=== PATIENT | female | born 1945 | race Caucasian/White ===

== ENCOUNTER → 2016-03-09 | Day surgery (SDC) | payer MEDICARE, BC ==
[~2016-03-09] MED LIST: ACETAMINOPHEN/HYDROcodone 325 MG/5 MG TAB ONE; BETH25TA2 PO; BUPIVACAINE/EPINEPHRINE 0.5% 50 ML VIAL ONE; BUSP10TA PO; CIPR250T52 PO; CYAN1000P IM; DRON5CAP PO; ERYT200S2 PO; HYDR-3580 PO; IOHEXOL 180 MG/ML 20 ML VIAL (for RAD DIAG) ONE; KETOROLAC TROMETHAMINE 30 MG/ML (IVP) VIAL IV PUSH ONE; LACTATED RINGER'S 1000 ML INJ 1,000 ML ONE; LEVO25TA4 PO; LIDOCAINE 1%/EPINEPHrine 1:100,000 SOLN 20 ML VIAL ONE; LINA290C PO; LORA1TAB12 PO; MAGN1TAB14 PO; MIDAZOLAM HCL 2 MG/2 ML VIAL ONE; MILKPOW; MOBI7.5T PO; MORPHINE SULFATE 4 MG/ML INJ ONE; MULTTAB25 PO; OMEP40CA2 PO; ONDA4TAB7 SL; OXYC-392 PO; PHEN-430 PO; PROPOFOL 200 MG/20 ML AMP IV ONE; SODIUM CHLORIDE 0.9% SOLN 100 ML (PAB) BAG IV ONE; TIZA2CAP3 PO; ZOLE5P IV; ceFAZolin INJ 1,000 MG VIAL ONE
--- NOTE | 2016-03-09 13:50 | TN ---
cc: CJ VALENTINO DATE OF SURGERY: 03/09/2016 PREOPERATIVE DIAGNOSIS Compression fracture L1 acute. POSTOPERATIVE DIAGNOSIS Compression fracture L1 acute. PROCEDURE Kyphoplasty of L1 and placement of bone cement spacer. SURGEON Cj Valentino ANESTHESIA TIVA. BLOOD LOSS Minimal. INDICATION This patient is a 70-year-old female who has had evidence of an x-ray showing acute fractures of L1 with minimal subsidence been followed now for period of 3-4 weeks. Investigative studies shows evidence of continued subsidence of that level. The patient had the pacemaker cannot have a MRI scan. She is felt to have clear evidence of acute compression fracture at that level. Despite conservative care she is painful now presents for surgical treatment. PROCEDURE The patient brought to the operating given limited sedation. She rolled to prone position on a radiolucent table. All pressure points were protected and the back was scrubbed alcohol followed by Hibiclens followed Chloraprep and draped sterilely. Antibiotics were given within 1 hour time window a time-out was done. AP and lateral radiographic images used identifying the L2-L1 level. Local anesthesia was utilized in a single balloon was utilized from left side. Local anesthesia was utilized small incision made an awl placed down to the pedicle and into the tube body at oblique angle. A 20-mm Kyphon balloon was placed centrally and was inflated. On the back table the Methacrylate was mixed. After approximately 11 minutes it was injected. We had no extravasation. The cement was allowed to harden. The tubes removed. Intraoperative x-rays were obtained. The wound was irrigated, anesthetized, closed with 4-0 Vicryl, followed by Dermabond. The patient was awakened taken to the Recovery Room in satisfactory condition. Cj Valentino MD [facility] [place]/ /1:35 PM /1:41 PM
== END | disposition home or self-care (01) ==
LOC: ESDC 10:52
PROVIDERS: ATTEND Orthopaedic Surgery Orthopaedic Surgery of the Spine
DX: S32.010A Wedge compression fracture of first lumbar vertebra, initial encounter for closed fracture (principal)
CPT/HCPCS: 01936; 22514; 72100; J0690; J1885; J2250; J2270; J3010; J7120; Q9965

== ENCOUNTER 2016-04-29 14:57 | Emergency (ER) | payer MEDICARE, BC ==
[~2016-04-29] VITALS: Ht 157.5 cm; Wt 50.0 kg
[~2016-04-29 14:57] MED LIST changes: -ACETAMINOPHEN/HYDROcodone 325 MG/5 MG TAB ONE; -BUPIVACAINE/EPINEPHRINE 0.5% 50 ML VIAL ONE; -HYDR-3580 PO; -IOHEXOL 180 MG/ML 20 ML VIAL (for RAD DIAG) ONE; -KETOROLAC TROMETHAMINE 30 MG/ML (IVP) VIAL IV PUSH ONE; -LACTATED RINGER'S 1000 ML INJ 1,000 ML ONE; -LIDOCAINE 1%/EPINEPHrine 1:100,000 SOLN 20 ML VIAL ONE; -MIDAZOLAM HCL 2 MG/2 ML VIAL ONE; -MORPHINE SULFATE 4 MG/ML INJ ONE; -PROPOFOL 200 MG/20 ML AMP IV ONE; -SODIUM CHLORIDE 0.9% SOLN 100 ML (PAB) BAG IV ONE; -ceFAZolin INJ 1,000 MG VIAL ONE
[2016-04-29 15:00] VITALS: BP 131/72; PULSE 86; RESP 20; TEMP 97.8; O2SAT 95
[2016-04-29] MEDS ORDERED: HYDR-3580 PO (15:11)
--- NOTE | 2016-04-29 15:32 | PD ---
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 Duration one day. She noticed leaking today. She is able to eat but uses the feeding tube to supplement with ensure shakes 2 or 3 a day. No abdominal pain. Symptoms severity is mild. No alleviating factors PFSH Past Medical History Arthritis: Yes Anxiety: Yes Depression: Yes Cancer: No Cardiovascular Problems: Yes High Cholesterol: Yes Dementia: Yes Diminished Hearing: No Endocrine: No Gastrointestinal Disorders: Yes (Gastroparesis, IBS- GASTROPARESIS IS WORSENING ) Genitourinary: No Hypertension: Yes Immune Disorder: No Implanted Vascular Access Dvce: Yes Insomnia: Yes Musculoskeletal: Yes (Osteoporosis) Neurologic: No Psychiatric: Yes Reproductive: No Respiratory: No Immunizations Current: Yes Thyroid Disease: Yes (Hypo-) Menopausal: Yes : 2 Para: 2 Miscarriage: 0 : 0 Past Surgical History Abdominal Surgery: Yes (G-TUBE) Appendectomy: Yes Body Medical Devices: BILATERAL BREAST IMPLANTS Cardiac Surgery: No Eye Surgery: Yes (BL cataracts ) Genitourinary Surgery: No Gynecologic Surgery: Yes Hysterectomy: Yes Joint Replacement: Yes (BL hips ) Neurologic Surgery: No Thoracic Surgery: Yes (BREAST AUGMENTATION) Tonsillectomy: Yes Other Surgery: Yes (Breast augmentation ) Social History Alcohol Use: Yes (Rarely) Tobacco Use: Yes (1.5 PPD) Substance Use: No Allergies-Medications (Allergen,Severity, Reaction): Coded Allergies: Demerol (Verified Allergy, Severe, "Throat closes", 01/26/16) *MDRO Multi-Drug Resistant Organism (Verified Adverse Reaction, Unknown, 01/26/16) 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 Reported Meds & Prescriptions Reported Meds & Active Scripts Active Reported Hydrocodone-Acetaminophen 7.5-325 mg Tab 1 Tab PO Q6H PRN Bethanechol 25 Mg Tab 25 Mg PO BID Reclast Inj (Zoledronic Acid) 5 Mg/100 Ml Inj 5 Mg IV Q365D Omeprazole 40 Mg Cap 40 Mg PO DAILY Multi For Her 50+ (Multiple Vitamins W/ Minerals) 1 Tab Tab 1 Tab PO DAILY Mobic (Meloxicam) 7.5 Mg Tab 7.5 Mg PO BID NEB Magnesium 400 Mg Tab 800 Mg PO DAILY Lorazepam 1 Mg Tab 1 Mg PO HS PRN Linzess (Linaclotide) 290 Mcg Cap 290 Mcg PO DAILY Levothyroxine (Levothyroxine Sodium) 25 Mcg Tab 25 Mcg PO DAILY Dronabinol 5 Mg Cap 5 Mg PO BID Cyanocobalamin Inj (Cyanocobalamin) 1,000 Mcg/Ml Inj 1,000 Mcg IM MONTHLY Buspirone (Buspirone HCl) 10 Mg Tab 10 Mg PO BID Review of Systems General / Constitutional: No: Fever Eyes: No: Visual changes HENT: No: Headaches Cardiovascular: No: Chest Pain or Discomfort Respiratory: No: Shortness of Breath Gastrointestinal: No: Abdominal Pain Genitourinary: No: Dysuria Musculoskeletal: No: Pain Skin: No Rash Neurologic: No: Weakness Psychiatric: No: Depression Endocrine: No: Polydipsia Hematologic/Lymphatic: No: Easy Bruising Physical Exam Narrative GASTROINTESTINAL: Abdomen soft, non-tender, nondistended. Positive bowel sounds. No hepato-splenomegaly, or palpable masses. No guarding. There is a GJ tube in place. The balloon is ruptured. I filled the balloon with saline but it just spills out. SKIN: Inspection shows no rash or ulcers. Palpation shows no induration or nodules. Psych: Normal mood and affect. Normal insight and judgment. NECK: Symmetrical appearance, midline trachea. No mass or crepitus. Thyroid without enlargement, tenderness, or mass. CARDIOVASCULAR: Regular rate and rhythm without murmur. Extremities showed no edema or varicosities. RESPIRATORY: Respiratory effort unlabored, no retractions or use of accessory muscles. Breath sounds are clear and symmetric. Data Data Last Documented VS Vital Signs Date Time Temp Pulse Resp B/P Pulse Ox O2 Delivery O2 Flow Rate FiO2 04/29/16 15:00 97.8 86 20 131/72 95 Room Air MDM Medical Decision Making Medical Screen Exam Complete: Yes Emergency Medical Condition: Yes Medical Record Reviewed: Yes Differential Diagnosis Feeding tube failure, displacement, gastritis Narrative Course I have reviewed the patient's electronic medical record. Patient's been here multiple times for feeding tube problems in the last year So this patient has failure of GJ tube. It's not usable right now. Due to leakage We secured it with dressing and covered up so it will remain tight to the scan and not leak has been through this multiple times before and will call outpatient radiology tomorrow to set up replacement This is not going to happen on Saturday [place] race today Diagnosis Primary Impression: Feeding tube dysfunction Qualified Code: T85.598A - Feeding tube dysfunction, initial encounter Additional Instructions: The patient was advised to follow up with their physician and return if they worsen. Follow-up with outpatient radiology for replacement Med/Other Pt SpecificInfo: Other Disposition: 01 DISCHARGE HOME Condition: Stable Matt Perez MD Apr 29, 2016 15:32
== END 2016-04-29 16:13 | disposition home or self-care (01) ==
LOC: NEPC 14:57
DX: K94.23 Gastrostomy malfunction (principal); K31.84 Gastroparesis; I10 Essential (primary) hypertension; E78.00 Pure hypercholesterolemia, unspecified; K58.9 Irritable bowel syndrome, unspecified; F17.210 Nicotine dependence, cigarettes, uncomplicated
CPT/HCPCS: 99282

== ENCOUNTER 2016-04-30 07:50 | Emergency (ER) | payer MEDICARE, BC ==
[~2016-04-30] VITALS: Ht 157.5 cm; Wt 39.0 kg
[~2016-04-30 07:50] MED LIST changes: -CIPR250T52 PO; -ERYT200S2 PO; +HYDR-3580 PO; -MILKPOW; -ONDA4TAB7 SL; -OXYC-392 PO; -PHEN-430 PO; -TIZA2CAP3 PO
[2016-04-30 07:51] VITALS: BP 136/86; PULSE 79; RESP 15; TEMP 98.2; O2SAT 95
[2016-04-30 07:59] VITALS: BP 182/96; PULSE 75; RESP 20; O2SAT 96
--- NOTE | 2016-04-30 08:02 | PD ---
HPI . 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 reports that patient has had some failure with her GJ tube. Patient was here yesterday and was seen in the ED and was told to follow-up with interventional radiology this morning. However reports that he did not want to wait as her tube was leaking significantly. He also tells me that they do not answer their phones until 8 AM, therefore he decided to come to the emergency department in hopes of expediting her GJ tube replacement. At the time of examination patient denies any pain, nausea, vomiting, abdominal pain, diarrhea, or constipation. PFSH Past Medical History Arthritis: Yes Anxiety: Yes Depression: Yes Cancer: No Cardiovascular Problems: Yes High Cholesterol: Yes Dementia: Yes Diminished Hearing: No Endocrine: No Gastrointestinal Disorders: Yes (Gastroparesis, IBS- GASTROPARESIS IS WORSENING ) Genitourinary: No Hypertension: Yes Immune Disorder: No Implanted Vascular Access Dvce: Yes Insomnia: Yes Musculoskeletal: Yes (Osteoporosis) Neurologic: No Psychiatric: Yes Reproductive: No Respiratory: No Immunizations Current: Yes Thyroid Disease: Yes (Hypo-) Menopausal: Yes : 2 Para: 2 Miscarriage: 0 : 0 Past Surgical History Abdominal Surgery: Yes (G-TUBE) Appendectomy: Yes Body Medical Devices: BILATERAL BREAST IMPLANTS Cardiac Surgery: No Eye Surgery: Yes (BL cataracts ) Genitourinary Surgery: No Gynecologic Surgery: Yes Hysterectomy: Yes Joint Replacement: Yes (BL hips ) Neurologic Surgery: No Thoracic Surgery: Yes (BREAST AUGMENTATION) Tonsillectomy: Yes Other Surgery: Yes (Breast augmentation ) Social History Alcohol Use: Yes (Rarely) Tobacco Use: Yes (1.5 PPD) Substance Use: No Allergies-Medications (Allergen,Severity, Reaction): Coded Allergies: Demerol (Verified Allergy, Severe, "Throat closes", 04/30/16) *MDRO Multi-Drug Resistant Organism (Verified Adverse Reaction, Unknown, ) 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 Reported Meds & Prescriptions Reported Meds & Active Scripts Active Reported Hydrocodone-Acetaminophen 7.5-325 mg Tab 1 Tab PO Q6H PRN Bethanechol 25 Mg Tab 25 Mg PO BID Reclast Inj (Zoledronic Acid) 5 Mg/100 Ml Inj 5 Mg IV Q365D Omeprazole 40 Mg Cap 40 Mg PO DAILY Multi For Her 50+ (Multiple Vitamins W/ Minerals) 1 Tab Tab 1 Tab PO DAILY Mobic (Meloxicam) 7.5 Mg Tab 7.5 Mg PO BID NEB Magnesium 400 Mg Tab 800 Mg PO DAILY Lorazepam 1 Mg Tab 1 Mg PO HS PRN Linzess (Linaclotide) 290 Mcg Cap 290 Mcg PO DAILY Levothyroxine (Levothyroxine Sodium) 25 Mcg Tab 25 Mcg PO DAILY Dronabinol 5 Mg Cap 5 Mg PO BID Cyanocobalamin Inj (Cyanocobalamin) 1,000 Mcg/Ml Inj 1,000 Mcg IM MONTHLY Buspirone (Buspirone HCl) 10 Mg Tab 10 Mg PO BID Review of Systems General / Constitutional: No: Fever Eyes: No: Visual changes HENT: No: Headaches Cardiovascular: No: Chest Pain or Discomfort Respiratory: No: Shortness of Breath Gastrointestinal: No: Abdominal Pain Genitourinary: No: Dysuria Musculoskeletal: No: Pain Skin: No Rash Neurologic: No: Weakness Psychiatric: No: Depression Endocrine: No: Polydipsia Hematologic/Lymphatic: No: Easy Bruising Physical Exam Narrative GENERAL: AAO x 2, no acute distress, Well-nourished, well-developed patient. SKIN: Warm and dry. No visible rashes or bruising. HEAD: Normocephalic and atraumatic. EYES: No scleral icterus. No injection or drainage. EOM intact, PERRLA ENT: No nasal drainage noted. Mucous membranes pink. Airway patent. NECK: Supple, trachea midline. No JVD. CARDIOVASCULAR: Regular rate and rhythm without murmurs, gallops, or rubs. RESPIRATORY: Breath sounds equal bilaterally. No accessory muscle use. No rhonchi or rales. GASTROINTESTINAL: Abdomen soft, non-tender, nondistended. GJ tube leaking fluid. No foul odor. No evidence of infection. new tube without any defects. no leakage present. EXTREMITIES: No cyanosis or edema. BACK: Nontender without obvious deformity. No CVA tenderness. PSYCH: AAO x 2, normal affect. Data Data Last Documented VS Vital Signs Date Time Temp Pulse Resp B/P Pulse Ox O2 Delivery O2 Flow Rate FiO2 04/30/16 13:45 66 18 157/78 93 Room Air 04/30/16 10:24 98.7 Orders Acetamin-Hydrocod 325-7.5 Mg ([place] 7.5 (04/30/16 10:45) Iohexol 350 Inj (Omnipaque 350 Inj) (04/30/16 13:14) Change Of Gj-Tube (04/30/16 08:05) MDM Medical Decision Making Medical Screen Exam Complete: Yes Emergency Medical Condition: Yes Medical Record Reviewed: Yes Differential Diagnosis feeding tube failure, displacement, gastritis, Narrative Course 70-year-old female with history of dementia, hypothyroidism, gastroparesis, poor eating habits, osteoporosis, GERD, chronic constipation secondary opiate usage and back surgery 3 here accompanied by her . reports that patient has had some failure with her GJ tube. Patient was here yesterday and was seen in the ED and was told to follow-up with interventional radiology this morning. However reports that he did not want to wait as her tube was leaking significantly. He also tells me that they do not answer their phones until 8 AM, therefore he decided to come to the emergency department in hopes of expediting her GJ tube replacement. At the time of examination patient denies any pain, nausea, vomiting, abdominal pain, diarrhea, or constipation. I personally spoke to the radiology department. They will get patient in today, but it will be more towards the afternoon. I discussed with patient and her . They were happy. 1044: patient complains of pain (generalized) usually takes norco at home and has not had any since yesterday Patient had GJ tube replaced and now requesting to go home. Advised follow-up with her primary care provider. Continue home meds as prescribed. Patient verbalized understanding of instructions, questions were answered, and thanked me for their care. I advised them if their condition worsens, please return to the nearest emergency room for further care. Diagnosis Primary Impression: Encounter for gastrojejunal (GJ) tube placement Patient Instructions: General Instructions Med/Other Pt SpecificInfo: No Change to Meds Disposition: 01 DISCHARGE HOME Condition: Stable Jackie Templeton Apr 30, 2016 08:02
[2016-04-30 10:24] VITALS: BP 131/77; PULSE 72; RESP 20; TEMP 98.7; O2SAT 99
[2016-04-30] MEDS ORDERED: ACETAMINOPHEN/HYDROcodone 325 MG/7.5 MG TAB PO ONE (10:45)
[2016-04-30] MEDS ORDERED: IOHEXOL 350 MG/ML 50 ML BTL (for RAD DIAG) G-TUBE ONE (13:14)
[2016-04-30 13:45] VITALS: BP 157/78; PULSE 66; RESP 18; O2SAT 93
[2016-04-30 14:13] VITALS: BP 157/78
--- NOTE | 2016-04-30 16:33 | RADRPT ---
EXAM DATE/TIME: 04/30/2016 12:46 [facility] COMPARISON: CHANGE OF GJ-TUBE CATHETER, February 28, 2016, 8:44. INDICATIONS : Patient with gastroparesis, non-fuctioning GJ tube needs replaced. MEDICAL HISTORY : Gastroparesis dementia Hypercholesterolemia Hypothyroid COPD GERD Hyperlipemia HTN IBS SURGICAL HISTORY : Appendectomy Breast surgery Colonoscopy EGD Tonsillectomy ENCOUNTER: Subsequent ACUITY: 7 - 11 months PAIN SCORE: 0/10 FLUORO TIME: 8.3 minutes CONTRAST: 20 cc Omnipaque (iohexol) 350 DEVICE(S): 1.) 22 [place] Transgastric tube PROCEDURE : 1. Fluoroscopically guided gastrojejunostomy tube exchange. 2. Conscious sedation with continuous EKG and oximetry monitoring. The risks, benefits and alternatives to the procedure were explained and verbal and written consent w as obtained. The site was prepped in sterile fashion. Full sterile technique was used, including ca p, mask, sterile gloves and gown and a large sterile sheet. Hand hygiene and 2% chlorhexidine and/or betadine/alcohol prep was utilized per protocol for cutaneous antisepsis. The skin and subcutaneous tissues were infiltrated with local anesthetic solution. With fluoroscopic guidance a guidewire was passed through the previous gastrojejunostomy tube and a f resh tube was placed over the guidewire. The balloon was inflated with appropriate volume of saline. Injection of positive contrast demonstrates good position of the gastric and jejunal lumens of the tube. Conscious sedation was performed with the prescribed dosages and duration as above. The patient amador ated the procedure well and there were no complications. EKG and oximetry remained stable throughout the procedure. The patient was sent to post anesthesia recovery in stable condition. CONCLUSION: Uncomplicated gastrojejunostomy tube exchange as above. Jackson Hope MD on April 30, 2016 at 16:31 Board Certified Radiologist. This report was verified electronically.
== END 2016-04-30 14:55 | disposition home or self-care (01) ==
LOC: NEPC 07:50
DX: Z43.4 Encounter for attention to other artificial openings of digestive tract (principal); T85.598A Other mechanical complication of other gastrointestinal prosthetic devices, implants and grafts, initial encounter; I10 Essential (primary) hypertension; E03.9 Hypothyroidism, unspecified; F03.90 Unspecified dementia, unspecified severity, without behavioral disturbance, psychotic disturbance, mood disturbance, and anxiety; E78.00 Pure hypercholesterolemia, unspecified; F17.200 Nicotine dependence, unspecified, uncomplicated; Z87.39 Personal history of other diseases of the musculoskeletal system and connective tissue; Z86.59 Personal history of other mental and behavioral disorders; Z86.79 Personal history of other diseases of the circulatory system; Z87.19 Personal history of other diseases of the digestive system
CPT/HCPCS: 49452; 99282; C1769; C1874; Q9967

== ENCOUNTER 2016-05-04 07:01 | Day surgery (SDC) | payer MEDICARE, BC ==
[2016-05-04 07:20] VITALS: BP 122/77; PULSE 69; RESP 18; TEMP 97.9; O2SAT 97
== END 2016-05-04 07:46 | disposition home or self-care (01) ==
LOC: HROP 07:01 → HRIP 07:06 → HROP 07:46
PROVIDERS: ATTEND Radiology Body Imaging
DX: K31.84 Gastroparesis (principal)

== ENCOUNTER 2016-09-22 11:34 | Emergency (ER) | payer MEDICARE, BC ==
[~2016-09-22] VITALS: Ht 149.9 cm; Wt 32.0 kg
[2016-09-22 11:36] VITALS: BP 90/56; PULSE 78; RESP 15; TEMP 97.6; O2SAT 99
--- NOTE | 2016-09-22 11:43 | PD ---
HPI . 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 Per the tube broke yesterday and then all of a sudden started gushing. He contacted his doctor and was told to come to the ED. She receives all her feedings through this device. She has no particular complaints today. PFSH Past Medical History Arthritis: Yes Anxiety: Yes Depression: Yes Cancer: No Cardiovascular Problems: Yes High Cholesterol: Yes Dementia: Yes Diminished Hearing: No Endocrine: No Gastrointestinal Disorders: Yes (Gastroparesis, IBS) Genitourinary: No Hypertension: Yes Immune Disorder: No Implanted Vascular Access Dvce: Yes Insomnia: Yes Musculoskeletal: Yes (Osteoporosis) Neurologic: No Psychiatric: Yes Reproductive: No Respiratory: No Immunizations Current: Yes Thyroid Disease: Yes (Hypo-) ?: Not Menopausal: Yes : 2 Para: 2 Miscarriage: 0 : 0 Past Surgical History Abdominal Surgery: Yes (G-TUBE) Appendectomy: Yes Body Medical Devices: BILATERAL BREAST IMPLANTS Cardiac Surgery: No Eye Surgery: Yes (BL cataracts ) Genitourinary Surgery: No Gynecologic Surgery: Yes Hysterectomy: Yes Joint Replacement: Yes (BL hips ) Neurologic Surgery: No Thoracic Surgery: Yes (BREAST AUGMENTATION) Tonsillectomy: Yes Other Surgery: Yes (Breast augmentation ) Social History Alcohol Use: Yes (Rarely) Tobacco Use: Yes (1.5 PPD) Substance Use: No Allergies-Medications (Allergen,Severity, Reaction): Coded Allergies: Demerol (Verified Allergy, Severe, "Throat closes", 04/30/16) *MDRO Multi-Drug Resistant Organism (Verified Adverse Reaction, Unknown, ) 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 Reported Meds & Prescriptions Reported Meds & Active Scripts Active Reported Yuvafem Vaginal Tab (Estradiol Vaginal Tab) 10 Mcg Tab 10 Mcg VAGINAL DIRECTED Stool Softener (Docusate Sodium) 100 Mg Cap 100 Mg PO DAILY PRN Movantik (Naloxegol) 25 Mg Tab 25 Mg PO DAILY Lidocaine Patch 12 HR (Lidocaine) 5 % Patch 1 Patch TOPICAL DAILY PRN Remove patch after 12 hours Dicyclomine (Dicyclomine HCl) 10 Mg Cap 10 Mg PO BID Omeprazole 20 Mg Cap 20 Mg PO DAILY Take 1hr before a meal Hydrocodone-Acetaminophen 7.5-325 mg Tab 1 Tab PO Q6H PRN Bethanechol 25 Mg Tab 25 Mg PO BID Reclast Inj (Zoledronic Acid) 5 Mg/100 Ml Inj 5 Mg IV YEARLY Multi For Her 50+ (Multiple Vitamins W/ Minerals) 1 Tab Tab 1 Tab PO DAILY Mobic (Meloxicam) 7.5 Mg Tab 7.5 Mg PO BID Lorazepam 1 Mg Tab 1 Mg PO TID PRN Linzess (Linaclotide) 290 Mcg Cap 290 Mcg PO DAILY Levothyroxine (Levothyroxine Sodium) 25 Mcg Tab 25 Mcg PO DAILY Cyanocobalamin Inj (Cyanocobalamin) 1,000 Mcg/Ml Inj 1,000 Mcg IM MONTHLY Buspirone (Buspirone HCl) 10 Mg Tab 10 Mg PO DAILY Review of Systems General / Constitutional: No: Fever Eyes: No: Visual changes HENT: No: Headaches Cardiovascular: No: Chest Pain or Discomfort Respiratory: No: Shortness of Breath Gastrointestinal: Positive: Other (malfunctioning G-J tube), No: Abdominal Pain Genitourinary: No: Dysuria Musculoskeletal: No: Pain Skin: No Rash Neurologic: No: Weakness Psychiatric: No: Depression Endocrine: No: Polydipsia Hematologic/Lymphatic: No: Easy Bruising Physical Exam Narrative GENERAL: thin, frail appearing pleasant female SKIN: Warm and dry. No visible rashes or bruising. HEAD: Normocephalic and atraumatic. EYES: No scleral icterus. No injection or drainage. EOM intact, PERRLA ENT: No nasal drainage noted. Mucous membranes pink. Airway patent. NECK: Supple, trachea midline. No JVD. CARDIOVASCULAR: Regular rate and rhythm without murmurs, gallops, or rubs. RESPIRATORY: Breath sounds equal bilaterally. No accessory muscle use. No rhonchi or rales. GASTROINTESTINAL: Abdomen soft, non-tender, nondistended. small tear in the tip of the lumen of G-J tube EXTREMITIES: No cyanosis or edema. BACK: No obvious deformity. NEURO: CN II-12 intact, PSYCH: normal affect Data Data Last Documented VS Vital Signs Date Time Temp Pulse Resp B/P Pulse Ox O2 Delivery O2 Flow Rate FiO2 09/22/16 12:04 Room Air 09/22/16 11:36 97.6 78 15 90/56 99 Orders Vital Signs (Adult) Q15MX2,Q30MX2 (09/22/16 13:34) Wound Care (09/22/16 13:34) ^ Dressings (09/22/16 13:34) Activity Bed Rest (09/22/16 13:34) Change Of Gj-Tube (09/22/16 ) Iohexol 350 Inj (Omnipaque 350 Inj) (09/22/16 13:46) MDM Medical Decision Making Medical Screen Exam Complete: Yes Emergency Medical Condition: Yes Medical Record Reviewed: Yes Differential Diagnosis malfunctioning G-J tube, gastroparesis, Narrative Course 70 yr old female here with malfunctioning G-J tube. IR has been contacted for replacement. IR accepted patient for placement of 2. 1337: IR contacted us and tube has been replaced. IR notes state tube in proper position. Patient in room resting comfortably. She is cleared for discharge and can go once she wakes up. She will need follow-up with primary care provider. Diagnosis Primary Impression: Feeding tube dysfunction Qualified Code: T85.598A - Feeding tube dysfunction, initial encounter Patient Instructions: General Instructions Additional Instructions: Follow-up with your primary care provider. Med/Other Pt SpecificInfo: No Change to Meds Disposition: 01 DISCHARGE HOME Condition: Stable Jackie Templeton Sep 22, 2016 11:43
[2016-09-22] MEDS ORDERED: LIDO1PAD52 TOPICAL (12:38)
[2016-09-22] MEDS ORDERED: SENO8.6T5 PO (12:38)
[2016-09-22] MEDS ORDERED: NALO1TAB2 PO (12:38)
[2016-09-22] MEDS ORDERED: STOO100C PO (12:38)
[2016-09-22] MEDS ORDERED: ESTR1TAB78 VAGINAL (12:38)
[2016-09-22] MEDS ORDERED: DICY10CA12 PO (12:38)
[2016-09-22] MEDS ORDERED: OMEP20CA2 PO (12:38)
--- NOTE | 2016-09-22 13:34 | PD.RAD ---
Post Procedure Progress Note Pre Procedure Diagnosis: (1) Feeding tube dysfunction Post Procedure Diagnosis: (1) Encounter for gastrojejunal (GJ) tube placement (2) Feeding tube dysfunction Procedure Date: Sep 22, 2016 Supervising Radiologist: Patrick Souza Proceduralist/Assist: Kamille Davenport, RT(R)(), Tessy Hilliard RT(R) Anesthesia: Local Plan of Activity Patient to Unit: Other Patient Condition: Good Additional Comments: Replaced GJ cath See PACS Report for procedural detail/treatment Patrick Souza MD Sep 22, 2016 13:33
[2016-09-22] MEDS ORDERED: IOHEXOL 350 MG/ML 50 ML BTL (for RAD DIAG) J-TUBE ONE (13:46)
--- NOTE | 2016-09-22 14:39 | RADRPT ---
EXAM DATE/TIME: 09/22/2016 12:49 [facility] COMPARISON: CHANGE OF GJ-TUBE CATHETER, April 30, 2016, 12:46. INDICATIONS : Patient with gastroparesis, needs new GJ tube. MEDICAL HISTORY : Gastroparesis dementia Hypercholesterolemia Hypothyroid COPD GERD Hyperlipemia HTN IBS SURGICAL HISTORY : Appendectomy Breast surgery Colonoscopy EGD Tonsillectomy ENCOUNTER: Subsequent ACUITY: >1 year PAIN SCORE: 0/10 FLUORO TIME: 3.4 minutes IMAGE SERIES: 1 CONTRAST: 10 cc Omnipaque (iohexol) 350 DEVICE(S): 1.) 22 [place] Transgastric tube PROCEDURE : 1. Fluoroscopically guided gastrojejunostomy tube exchange. 2. Conscious sedation with continuous EKG and oximetry monitoring. The risks, benefits and alternatives to the procedure were explained and verbal and written consent w as obtained. The site was prepped in sterile fashion. Full sterile technique was used, including ca p, mask, sterile gloves and gown and a large sterile sheet. Hand hygiene and 2% chlorhexidine and/or betadine/alcohol prep was utilized per protocol for cutaneous antisepsis. The skin and subcutaneous tissues were infiltrated with local anesthetic solution. With fluoroscopic guidance a guidewire was passed through the previous gastrojejunostomy tube and a f resh tube was placed over the guidewire. The balloon was inflated with appropriate volume of saline. Injection of positive contrast demonstrates good position of the gastric and jejunal lumens of the tube. Conscious sedation was performed with the prescribed dosages and duration as above in the presence of an independent trained radiology nurse to assist in the monitoring of the patient. EKG and oximetry remained stable throughout the procedure. The patient tolerated the procedure well and there were n o complications. The patient was sent to post anesthesia recovery in stable condition. CONCLUSION: Uncomplicated gastrojejunostomy tube exchange as above. Patrick Souza MD on September 22, 2016 at 14:37 Board Certified Radiologist. This report was verified electronically.
== END 2016-09-22 15:23 | disposition home or self-care (01) ==
LOC: NEPD 11:34
DX: T85.598A Other mechanical complication of other gastrointestinal prosthetic devices, implants and grafts, initial encounter (principal)
CPT/HCPCS: 49452; 99284; C1769; C1874; C1887; Q9967

== ENCOUNTER 2016-11-19 01:55 | Inpatient (IN) | payer MEDICARE, BC ==
[~2016-11-19 01:55] MED LIST changes: +DICY10CA12 PO; -DRON5CAP PO; +ESTR1TAB78 VAGINAL; +LIDO1PAD52 TOPICAL; -MAGN1TAB14 PO; +NALO1TAB2 PO; +OMEP20CA2 PO; -OMEP40CA2 PO; +SENO8.6T5 PO; +STOO100C PO
[2016-11-19 02:10] VITALS: O2SAT 100
[2016-11-19] MEDS ORDERED: AZITHROMYCIN INJ 500 MG in SODIUM CHLOR 0.9% 250 ML INJ 250 ML IV ONE (02:15)
[2016-11-19] MEDS ORDERED: SODIUM CHLORIDE 0.9% FLUSH 10 ML FLUSH IVF PRN (02:15)
[2016-11-19] MEDS ORDERED: methylPREDNISolone SOD SUCC 125 MG/2 ML VIAL IV PUSH ONE (02:15)
[2016-11-19] MEDS ORDERED: SODIUM CHLORID 0.9% 500 ML INJ 500 ML IV ONE (02:15)
[2016-11-19] MEDS ORDERED: cefTRIAXone INJ 1,000 MG in SODIUM CHLORIDE 0.9% INJ 100 ML IV ONE (02:15)
[2016-11-19] MEDS: RESP: ALBUTEROL 2.5 MG/IPRATROPIUM 0.5 MG NEB (SCH) INH ×2 (02:15→02:30)
[2016-11-19 02:30] LABS: BLOOD GAS BASE EXCESS -10.8 mmol/L (-2-2); BLOOD GAS HCO3 16 mmol/L (22-26); BLOOD GAS METHEMOGLOBIN 0.5 % (0-2); BLOOD GAS O2 HGB SATURATION 98 % (90-100); BLOOD GAS OXYGEN CONTENT 11.5 Vol % (12.0-20.0); BLOOD GAS PCO2 46 mmHg (38-42); BLOOD GAS PO2 423 mmHG (61-120); BLOOD GAS TOTAL HGB 7.5 G/DL (12.0-16.0); CRITICAL VALUE YES; DRAW SITE RT BRACHIAL; FIO2 100 %; NUMBER OF ARTERIAL PUNCTURES 1; OXYGEN DEVICE VENTILATOR; STAT YES; TEMP CORR TO 98.6; ULNAR PULSE PRESENT
[2016-11-19] MEDS ORDERED: metroNIDAZOLE 500 MG INJ 100 ML IV ONE (02:30)
--- NOTE | 2016-11-19 02:38 | RADRPT ---
EXAM DATE/TIME: 11/19/2016 02:07 [place] COMPARISON: CHEST SINGLE AP, July 21, 2015, 14:10. INDICATIONS : Post intubation- Found unresponsive MEDICAL HISTORY : Unobtainable SURGICAL HISTORY : Unobtainable ENCOUNTER: Initial ACUITY: 1 day PAIN SCORE: Non-responsive. LOCATION: Bilateral chest FINDINGS: A single portable frontal view of the chest shows endotracheal tube with the tip 4 cm cephalad to the janell. Lungs are hyperaerated. Left lower lobe intralobular opacity is noted. Right lung is clear. Heart is normal in size. Prior cement augmentation at multiple thoracic vertebral bodies. No pneumoth orax. CONCLUSION: 1. Hyperinflation consistent with COPD. 2. Left lower lobe infiltrate. 3. Endotracheal tube. Dyllan Araujo Jr., MD on November 19, 2016 at 2:36 Board Certified Radiologist. This report was verified electronically.
[2016-11-19 02:39] VITALS: BP 75/50; PULSE 84; O2SAT 100
[2016-11-19] MEDS ORDERED: NOREPINEPHRINE 4 MG/4 ML AMP ONE (02:43)
--- NOTE | 2016-11-19 02:46 | PD ---
HPI Chief Complaint: postcardiac arrest Time Seen by Provider: 02:02 Travel History International Travel<30 days: No Contact w/Intl Traveler<30days: No History of Present Illness HPI The patient is a 71 year old female who presents to the [facility] emergency department with a history of being found unresponsive after last being seen in her usual state at 1:10 AM at her skilled nursing. The patient is relatively new to this rehabilitation facility according to ambulance services, therefore they were not very familiar with the patient's history. They reported that they went to check on the patient 1:15 AM and found her unresponsive without a pulse and not breathing. CPR was started. Approximate 10 minutes of CPR was done until ambulance services arrived. The patient was given 2 doses of epinephrine, and 1 amp of bicarbonate prior to arrival. The patient had a return of spontaneous circulation at 1:49 AM after resuscitative efforts were continued and an intratracheal tube and NG tube was placed. There was a concern that the patient may have aspirated. The patient is exclusively tube fed according to ambulance services. The patient's blood sugar was 177. There was a significant amount of white frothy sputum noted during intubation. No other history is able to be obtained from the patient who arrives unresponsive with an endotracheal tube in place. [facility] Past Medical History Narrative Medical The patient's past medical history is obtained from reviewing the electronic medical record and consists of osteoarthritis, hypertension, chronic hip pain, degenerative disc disease of the lumbar spine, osteoporosis, COPD, tobacco abuse , hyperlipidemia, acid reflux. Arthritis: Yes Anxiety: Yes Depression: Yes Cancer: No Cardiovascular Problems: Yes High Cholesterol: Yes Dementia: Yes Diminished Hearing: No Endocrine: No Gastrointestinal Disorders: Yes (Gastroparesis, IBS) Genitourinary: No Hypertension: Yes Immune Disorder: No Implanted Vascular Access Dvce: Yes Insomnia: Yes Musculoskeletal: Yes (Osteoporosis) Neurologic: No Psychiatric: Yes Reproductive: No Respiratory: No Immunizations Current: Yes Thyroid Disease: Yes (Hypo-) Menopausal: Yes : 2 Para: 2 Miscarriage: 0 : 0 Past Surgical History Narrative Surgical The patient's past surgical history is significant for a left knee replacement, bilateral breast implants, appendectomy, tonsillectomy, bilateral hip surgery, feeding tube placement. Abdominal Surgery: Yes (G-TUBE) Appendectomy: Yes Body Medical Devices: BILATERAL BREAST IMPLANTS Cardiac Surgery: No Eye Surgery: Yes (BL cataracts ) Genitourinary Surgery: No Gynecologic Surgery: Yes Hysterectomy: Yes Joint Replacement: Yes (BL hips ) Neurologic Surgery: No Thoracic Surgery: Yes (BREAST AUGMENTATION) Tonsillectomy: Yes Other Surgery: Yes (Breast augmentation ) Social History Alcohol Use: Yes (Rarely) Tobacco Use: Yes Substance Use: No Allergies-Medications (Allergen,Severity, Reaction): Coded Allergies: meperidine (Unverified Allergy, Severe, "Throat closes", 10/16/16) *MDRO Multi-Drug Resistant Organism (Verified Adverse Reaction, Unknown, ) 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 Reported Meds & Prescriptions Reported Meds & Active Scripts Active Reported Yuvafem Vaginal Tab (Estradiol Vaginal Tab) 10 Mcg Tab 10 Mcg VAGINAL DIRECTED Stool Softener (Docusate Sodium) 100 Mg Cap 100 Mg PO DAILY PRN Movantik (Naloxegol) 25 Mg Tab 25 Mg PO DAILY Lidocaine Patch 12 HR (Lidocaine) 5 % Patch 1 Patch TOPICAL DAILY PRN Remove patch after 12 hours Dicyclomine (Dicyclomine HCl) 10 Mg Cap 10 Mg PO BID Omeprazole 20 Mg Cap 20 Mg PO DAILY Take 1hr before a meal Hydrocodone-Acetaminophen 7.5-325 mg Tab 1 Tab PO Q6H PRN Bethanechol 25 Mg Tab 25 Mg PO BID Reclast Inj (Zoledronic Acid) 5 Mg/100 Ml Inj 5 Mg IV YEARLY Multi For Her 50+ (Multiple Vitamins W/ Minerals) 1 Tab Tab 1 Tab PO DAILY Mobic (Meloxicam) 7.5 Mg Tab 7.5 Mg PO BID Lorazepam 1 Mg Tab 1 Mg PO TID PRN Linzess (Linaclotide) 290 Mcg Cap 290 Mcg PO DAILY Levothyroxine (Levothyroxine Sodium) 25 Mcg Tab 25 Mcg PO DAILY Cyanocobalamin Inj (Cyanocobalamin) 1,000 Mcg/Ml Inj 1,000 Mcg IM MONTHLY Buspirone (Buspirone HCl) 10 Mg Tab 10 Mg PO DAILY Review of Systems ROS Limitations: Intubated Skin: No Rash Physical Exam Narrative General: The patient is a well-developed, thin appearing female who arrives by ambulance services status post code, currently intubated Head and Neck exam: Head is normocephalic atraumatic. Eyes: extraocular motion testing is unable to be accomplished as the patient arrives unresponsive, pupils are dilated and sluggishly reactive to light. Nose: Midline septum with pink mucous membranes Mouth: Dentition unremarkable. Moist mucus membranes. Posterior oropharynx is not able to be fully visualized due to a an endotracheal tube being in place. Neck: No palpable lymphadenopathy. No nuchal rigidity. No thyromegaly. Cardiovascular: Sinus tachycardia in the low 100s, no murmurs, gallops, or rubs. No pulse deficits to the extremities on simultaneous auscultation and palpation of her radial artery. Lungs: The patient has decreased breath sounds in the left lower lung base, crackles and rhonchi are audible in the right lung santos, no wheezes audible. Abdomen: Soft, without tenderness to palpation in all 4 quadrants of the abdomen. No guarding, rebound, or rigidity. The patient has a feeding tube in place the left upper quadrant of the abdomen that appears to be in good repair. Extremities: No clubbing, cyanosis, or edema. Neurologic Exam: The patient arrives with a GCS of 1. Eyes 1. Motor 1. Verbal- 1. Skin Exam: No rash noted. Intact skin that is warm and dry. Data Data Last Documented VS Vital Signs Date Time Temp Pulse Resp B/P (MAP) Pulse Ox O2 Delivery O2 Flow Rate FiO2 11/19/16 03:37 Room Air 11/19/16 03:35 85 151/86 11/19/16 03:16 93.5 99 11/19/16 02:10 100 Orders Orders Electrocardiogram (11/19/16 02:04) Complete Blood Count With Diff (11/19/16 02:04) Comprehensive Metabolic Panel (11/19/16 02:04) Creatine Kinase (Cpk) (11/19/16 02:04) Ckmb (Isoenzyme) Profile (11/19/16 02:04) Troponin I (11/19/16 02:04) B-Type Natriuretic Peptide (11/19/16 02:04) Prothrombin Time / Inr (Pt) (11/19/16 02:04) Act Partial Throm Time (Ptt) (11/19/16 02:04) Blood Culture (11/19/16 02:04) C-Reactive Protein (Crp) (11/19/16 02:04) Lipase (11/19/16 02:04) Urinalysis - C+S If Indicated (11/19/16 02:04) Magnesium (Mg) (11/19/16 02:04) Chest, Single Ap (11/19/16 02:04) Iv Access Insert/Monitor (11/19/16 02:04) Ecg Monitoring (11/19/16 02:04) Oximetry (11/19/16 02:04) Urinary Catheter Insert/Apply (11/19/16 02:04) Ng Gastric Tube Insert/Monitor (11/19/16 02:04) Lactic Acid Sepsis Protocol (11/19/16 02:04) Arterial Blood Gas (Abg) (11/19/16 02:06) Sodium Chloride 0.9% Flush (Ns Flush) (11/19/16 02:15) Methylprednisolone So Succ Inj (Solumedr (11/19/16 02:15) Albuterol-Ipratropium Neb (Duoneb Neb) (11/19/16 02:15) Ceftriaxone Inj (Rocephin Inj) (11/19/16 02:15) Azithromycin Inj (Zithromax Inj) (11/19/16 02:15) Sodium Chlorid 0.9% 500 Ml Inj (Ns 500 M (11/19/16 02:15) Metronidazole 500 Mg Inj (Flagyl 500 Mg (11/19/16 02:30) Norepinephrine Inj (Levophed Inj) (11/19/16 02:43) ^ Infusion (11/19/16 ) Norepinephrine-Dextrose Drip (Levophed-D (11/19/16 03:00) Terbutaline Inj (Brethine Inj) (11/19/16 03:00) Code Status (11/19/16 03:37) Ed Comfort Care (11/19/16 03:37) NPO (11/19/16 03:37) Resp Oxygen Nasal Cannula (11/19/16 ) Morphine Inj (Morphine Inj) (11/19/16 03:45) Lorazepam Inj (Ativan Inj) (11/19/16 03:45) Ondansetron Inj (Zofran Inj) (11/19/16 03:45) Resp Extubation (11/19/16 ) Admit Order (Ed Use Only) (11/19/16 03:45) Labs Laboratory Tests Test 11/19/16 02:10 11/19/16 02:36 Blood Gas Puncture Site RT BRACHIAL Blood Gas Patient Temperature 98.6 Blood Gas HCO3 16 mmol/L Blood Gas Base Excess -10.8 mmol/L Blood Gas Oxygen Saturation 98 % Arterial Blood pH 7.17 Arterial Blood Partial Pressure CO2 46 mmHg Arterial Blood Partial Pressure O2 423 mmHG Arterial Blood Oxygen Content 11.5 Vol % Arterial Blood Carboxyhemoglobin 1.0 % Arterial Blood Methemoglobin 0.5 % Blood Gas Hemoglobin 7.5 G/DL Oxygen Delivery Device VENTILATOR Blood Gas Ventilator Setting PRVC14/450/+8/1.0 Blood Gas Inspired Oxygen 100 % White Blood Count 15.9 TH/MM3 Red Blood Count 2.32 MIL/MM3 Hemoglobin 7.6 GM/DL Hematocrit 23.6 % Mean Corpuscular Volume 101.7 FL Mean Corpuscular Hemoglobin 32.8 PG Mean Corpuscular Hemoglobin Concent 32.3 % Red Cell Distribution Width 14.6 % Platelet Count 260 TH/MM3 Mean Platelet Volume 7.8 FL Neutrophils (%) (Auto) 87.7 % Lymphocytes (%) (Auto) 7.1 % Monocytes (%) (Auto) 3.9 % Eosinophils (%) (Auto) 0.9 % Basophils (%) (Auto) 0.4 % Neutrophils # (Auto) 14.0 TH/MM3 Lymphocytes # (Auto) 1.1 TH/MM3 Monocytes # (Auto) 0.6 TH/MM3 Eosinophils # (Auto) 0.1 TH/MM3 Basophils # (Auto) 0.1 TH/MM3 CBC Comment AUTO DIFF Differential Total Cells Counted 100 Neutrophils % (Manual) 76 % Band Neutrophils % 5 % Lymphocytes % 7 % Monocytes % 5 % Eosinophils % 1 % Neutrophils # (Manual) 13.8 TH/MM3 Metamyelocytes 6 % Nucleated Red Blood Cells 2 /100 WBC Differential Comment FINAL DIFF MANUAL Platelet Estimate NORMAL Platelet Morphology Comment NORMAL Ovalocytes 1+ Prothrombin Time 11.4 SEC Prothromb Time International Ratio 1.0 RATIO Activated Partial Thromboplast Time 25.0 SEC Lactic Acid Level 11.7 mmol/L B-Type Natriuretic Peptide 55 PG/ML MDM Medical Decision Making Medical Screen Exam Complete: Yes Emergency Medical Condition: Yes Medical Record Reviewed: Yes Interpretation(s) Last Impressions Chest X-Ray 11/19/16 0204 Signed Impressions: Service Date/Time: Saturday, November 19, 2016 02:07 - CONCLUSION: 1. Hyperinflation consistent with COPD. 2. Left lower lobe infiltrate. 3. Endotracheal tube. Dyllan Araujo Jr., MD Differential Diagnosis Cardiopulmonary arrest related to respiratory failure from aspiration, versus cardiac arrhythmia, versus sudden cardiac , versus acute coronary syndrome Narrative Course During the course of the patients emergency department visit, IV access obtained and blood work sent for analysis. The patient was placed on a roll over press operator with oximetry and blood pressure monitoring. The patient had a lactic acid and blood cultures 2 ordered. The patient's rectal temperature was noted to be 93. The patient was placed on a bear hugger. An ECG was done which reveals a sinus rhythm with occasional supraventricular premature complexes. No acute ST segment elevation. QRS duration is 113 ms with a right bundle branch block, QTC 468 ms. The patient was initially provided normal saline IV fluids. The patient had DuoNeb 3 ordered to be administered, Solu-Medrol 125 mg IV, Rocephin 1 g IV, Zithromax 500 IV, and Flagyl added to respiratory management for sepsis due to suspected aspiration. The patients laboratory studies were reviewed and remarkable for an ABG done on arrival that shows a pH of 7.172, PCO2 46, PO2 423, bicarbonate 16.2, base excess -10.8, hemoglobin 7.5. A white count of 15.9, hemoglobin 7.6, platelets 260 with 76 neutrophils, 5 bands, lymphocytes 7, lactic acid 11.7, BNP is 55, PT 11.4, PTT 25, urinalysis shows 10 ketones otherwise unremarkable Radiology studies were reviewed and remarkable for a chest x-ray that shows hyperinflation consistent with COPD, left lower lobe infiltrate, endotracheal tube in position. The patient was noted to be hypotensive and was started on Levophed. Shortly after this, the patient's arrived. He reports to me that he is her health care surrogate and that she is DNR. He would like the patient extubated and further resuscitative efforts ordered. He reports that she has been sick and declining for weeks. He reports that she suffers with dementia, severe gastroparesis, and frequent falls with a recent recurrent left hip fracture that was treated [facility]operatively at [facility]. Was called to the patient's bedside when the patient became bradycardic, O2 saturations dropped, and then the patient went into asystole. The patient is reexamined. The patient had no respiratory effort. The patient had no cardiac activity auscultated. The patient had fixed and dilated pupils. The patient had no corneal response. The patient's time of was called at 4:45 AM. A call will be placed out to the patient's primary care physician regarding the patient's . Critical Care Narrative Aggregate critical care time was 39 minutes. Time to perform other separately billable procedures was not included in the critical care time. My time did not include minutes spent treating any other patients simultaneously or on activities that did not directly contribute to the patient's treatment. The services I provided to this patient were to treat and/or prevent clinically significant deterioration that could result in: Progression of hypoxic brain injury, versus fluid overload from over resuscitation due to sepsis, versus cardiovascular collapse related to sepsis, versus cardiac arrhythmia I provided critical care services requiring my management, as noted below: Chart data review, documentation time, medication orders and management, vital sign assessments/reviewing monitor data, ordering and reviewing lab tests, ordering and interpreting/reviewing x-rays and diagnostic studies, care of the patient and discussion of the patient with the admitting physicians. Sepsis Criteria SIRS Criteria (2 or more): Temp > 100.9 or < 96.8, WBC > 05444, < 4000 or > 10 % bands Sepsis Criteria (SIRS+source): Infect source susp/known Severe Sepsis (+one): Hypotension, Lactate >2 Septic Shock Criteria: Lactic acid >=4 Physician Communication Physician Communication The patient's case was discussed with Dave Ward who did agree to admit the patient to the [facility] group. Diagnosis Primary Impression: Cardiopulmonary arrest with successful resuscitation Admitting Information Admitting Physician Requests: Admit Nelida Rg MD Nov 19, 2016 02:46
[2016-11-19 02:48] VITALS: BP 59/33; PULSE 68; O2SAT 100
[2016-11-19 02:54] LABS: BASOPHIL # 0.1 TH/MM3 (0-0.2); BASOPHIL % 0.4 % (0.0-2.0); EOSINOPHIL # 0.1 TH/MM3 (0-0.4); EOSINOPHIL % 0.9 % (0.0-4.0); HEMATOCRIT 23.6 % (35.0-46.0); LYMPH % 7.1 % (9.0-44.0); LYMPHOCYTE # 1.1 TH/MM3 (1.0-4.8); MEAN CELL VOLUME 101.7 FL (80.0-100.0); MEAN CORPUSCULAR HEMOGLOBIN 32.8 PG (27.0-34.0); MEAN CORPUSCULAR HGB CONC 32.3 % (32.0-36.0); MONO % 3.9 % (0.0-8.0); NEUT % 87.7 % (16.0-70.0); PLATELET COUNT 260 TH/MM3 (150-450); RED BLOOD COUNT 2.32 MIL/MM3 (4.00-5.30); RED CELL DISTRIBUTION WIDTH 14.6 % (11.6-17.2); WHITE BLOOD COUNT 15.9 TH/MM3 (4.0-11.0)
[2016-11-19 02:55] LABS: HEMO FLAGS AUTO DIFF
[2016-11-19] MEDS ORDERED: NOREPINEPHRINE-DEXTROSE DRIP 250 ML IV PRN (03:00)
[2016-11-19] MEDS ORDERED: TERBUTALINE INJ 1 MG/ML AMP SQ PRN (03:00)
[2016-11-19 03:08] VITALS: BP 155/102; PULSE 83; O2SAT 99
[2016-11-19 03:09] LABS: PROTHROMBIN TIME - PATIENT 11.4 SEC (9.8-11.6)
[2016-11-19 03:16] VITALS: BP 151/82; PULSE 81; TEMP 93.5; O2SAT 99
[2016-11-19 03:34] LABS: BANDS 5 % (0-6); CORRECTED NUCLEATED RBC 2 /100 WBC (0-0); EOSINOPHILS 1 % (0-4); METAMYELOCYTES 6 % (0-1); NEUTROPHIL # MANUAL DIFF 13.8 TH/MM3 (1.8-7.7); POLYS (SEG NEUTROPHILS) 76 % (16-70); WBC DIFF SAMPLE 100
[2016-11-19 03:35] VITALS: BP 151/86; PULSE 85
[2016-11-19 03:35] LABS: OVALOCYTES 1+ (NORMAL); PLATELET ESTIMATE SMEAR NORMAL (NORMAL); PLATELET MORPHOLOGY NORMAL (NORMAL); SCAN/DIFF FINAL DIFF MANUAL
[2016-11-19] MEDS ORDERED: LORazepam 2 MG/ML VIAL IV ONE (03:45)
[2016-11-19] MEDS ORDERED: ONDANSETRON HCL 4 MG/2 ML VIAL IV PUSH ONE (03:45)
[2016-11-19] MEDS ORDERED: MORPHINE SULFATE 4 MG/ML INJ IV PRN (03:45)
[2016-11-19 04:49] LABS: LACTIC ACID GHOST NOT REPORTABLE
[2016-11-19 04:59] LABS: BLOOD, URINE NEG (NEG); COMMENT (UR) CULT NOT INDICATED; CULTURE IF INDICATED CULT NOT INDICATED; GLUCOSE,URINE NEG (NEG); HYALINE CAST, URINE 1 /lpf (RARE); KETONE, URINE 10 mg/dL (NEG); MUCUS URINE FEW /lpf (OCC); NITRITE,URINE NEG (NEG); URINE COLOR YELLOW (YELLW/STRAW)
[2016-11-19] MEDS ORDERED: BISACODYL 10 MG SUPP RECTAL PRN (05:00)
[2016-11-19] MEDS ORDERED: MORPHINE SULFATE 4 MG/ML INJ IV PUSH PRN ×2 (05:00)
[2016-11-19] MEDS ORDERED: ONDANSETRON HCL 4 MG/2 ML VIAL IVP PRN (05:00)
[2016-11-19] MEDS ORDERED: MAGNESIUM HYDROXIDE SUSP 30 ML CUP PO PRN (05:00)
[2016-11-19] MEDS ORDERED: LACTULOSE SYRUP 20 GM/30 ML CUP PO PRN (05:00)
[2016-11-19] MEDS ORDERED: SENNOSIDES 8.6 MG TAB PO PRN (05:00)
[2016-11-19] MEDS ORDERED: SODIUM CHLORIDE 0.9% FLUSH 10 ML FLUSH IV FLUSH PRN (05:00)
[2016-11-19] MEDS ORDERED: NALOXONE HCL 0.4 MG/ML AMP IV PUSH PRN (05:00)
[2016-11-19] MEDS ORDERED: LORazepam 2 MG/ML VIAL IV PUSH PRN (05:00)
[2016-11-19] MEDS ORDERED: SODIUM CHLORIDE 0.9% FLUSH 10 ML FLUSH IV FLUSH SCH (09:00)
--- NOTE | 2016-11-19 12:15 | EKG ---
Date Performed: 11/19/2016 Time Performed: 03:04:43 PTAGE: 71 years EKG: Sinus rhythm WITH OCCASIONAL SUPRAVENTRICULAR PREMATURE COMPLEXES LOW QRS VOLTAGE RIGHT BUNDLE BRANCH BLOCK ABNOR MAL ECG PREVIOUS TRACING : 07/30/2015 17.22 No significant change from previous tracing noted. DOCTOR: Jackson Fitzgerald Interpretating Date/Time 11/19/2016 12:14:26
== END 2016-11-19 06:00 | disposition expired | DRG 298 ==
LOC: NEPE 01:55 → NEDA 03:47
PROVIDERS: ADMIT Specialist; ATTEND Specialist
DX: I46.9 Cardiac arrest, cause unspecified (principal); J44.9 Chronic obstructive pulmonary disease, unspecified; F03.90 Unspecified dementia, unspecified severity, without behavioral disturbance, psychotic disturbance, mood disturbance, and anxiety; I10 Essential (primary) hypertension; K21.9 Gastro-esophageal reflux disease without esophagitis; K31.84 Gastroparesis; M81.0 Age-related osteoporosis without current pathological fracture; R29.6 Repeated falls; Z66 Do not resuscitate; E78.5 Hyperlipidemia, unspecified; Z93.1 Gastrostomy status; Z72.0 Tobacco use; Z88.8 Allergy status to other drugs, medicaments and biological substances
CPT/HCPCS: 36600; 51702; 71010; 81001; 82805; 83605; 83880; 85007; 85027; 85610; 85730; 87040; 93005; 94640; 94664; 96374; 96375; J0696; J2930; J7040